=== PATIENT | male | born 1990 | race Caucasian/White ===

== ENCOUNTER 2016-08-16 | Outpatient (CLI) | payer BC | END 2016-08-16 12:32 | disposition critical access hospital (66) | CPT/HCPCS: A0425; A0427 ==

== ENCOUNTER 2016-08-16 13:06 | Emergency (ER) | payer BC ==
[2016-08-16] MEDS ORDERED: LACTATED RINGERS 1,000 ML IV STA (13:09)
[2016-08-16] MEDS ORDERED: SODIUM CHLORIDE 0.9% 1,000 ML IV ONE (13:09)
[2016-08-16] MEDS ORDERED: ONDANSETRON 4 MG/2 ML VIAL IVP STA (13:40)
[2016-08-16] MEDS ORDERED: ONDANSETRON 4 MG/2 ML VIAL ONE (13:54)
[2016-08-16] MEDS ORDERED: ONDANSETRON ODT 4 MG Prepack 2 TL STA (14:23)
[2016-08-16] MEDS ORDERED: ONDANSETRON ODT 4 MG Prepack 2 TL ONE (14:24)
== END 2016-08-16 15:46 | disposition home or self-care (01) ==
DX: E86.0 Dehydration (principal); R11.2 Nausea with vomiting, unspecified